=== PATIENT | female | born 1990 | race Caucasian/White ===

== ENCOUNTER 2024-06-22 16:47 | Emergency (ER) | payer OTHER ==
[~2024-06-22] VITALS: Ht 165.1 cm; Wt 172.4 kg
[2024-06-22 16:53] VITALS: BP 175/106; PULSE 89; RESP 18; TEMP 98.2; O2SAT 95
[2024-06-22] MEDS ORDERED: ZESTRIL ONE (17:16)
[2024-06-22 17:28] VITALS: BP 170/100; PULSE 82; RESP 18; O2SAT 94
[2024-06-22] MEDS: ZESTRIL PO STA (17:28)
== END 2024-06-22 17:28 | disposition home or self-care (01) ==
LOC: ER 16:47
DX: H60.91 Unspecified otitis externa, right ear (principal); J32.9 Chronic sinusitis, unspecified; Z68.44 Body mass index [BMI] 60.0-69.9, adult
CPT/HCPCS: 99283